=== PATIENT | female | born 1975 | race African-American/Black ===

== ENCOUNTER 2018-02-13 09:56 | Observation (INO) ==
[2018-02-13 10:44] LABS: Baso # (Auto) 0.1 th/mm3 (0.0-0.2); Baso % (Auto) 1.2 % (0.0-2.0); Eos # (Auto) 0.1 th/mm3 (0.0-0.4); Eos % (Auto) 2.7 % (0.0-4.0); Lymph # (Auto) 1.3 th/mm3 (1.0-4.8); Lymph % (Auto) 27.8 % (9.0-44.0); Mean Corpuscular Hemoglobin 17.7 pg (27.0-34.0); Mean Corpuscular Volume 59.4 fL (80.0-100.0); Mean Platelet Volume 6.9 fL (7.0-11.0); Mono # (Auto) 0.4 th/mm3 (0.0-0.9); Mono % (Auto) 8.3 % (0.0-8.0); Neut # (Auto) 2.9 th/mm3 (1.8-7.7); Platelet Count 380 th/mm3 (150-450); Red Blood Count 3.41 mil/mm3 (4.00-5.30); Red Cell Distribution Width 21.2 % (11.6-17.2); White Blood Count 4.8 th/mm3 (4.0-11.0)
[2018-02-13 10:47] LABS: Mean Corpuscular HGB Conc 29.8 % (32.0-36.0)
--- NOTE | 2018-02-13 10:49 | XR ---
EXAM DATE: 02/13/2018 10:23 AM EDT AGE/SEX: 42 years / Female INDICATIONS: . Chest pain started yesterday, especially when taking a deep breath CLINICAL DATA: This is the patient's initial encounter. Patient reports that signs and symptoms have been present for 2 days and indicates a pain score of 10/10. MEDICAL/SURGICAL HISTORY: . smoker None. COMPARISON: No prior exams available for comparison. FINDINGS: PA and lateral views of the chest demonstrate the lungs to be symmetrically aerated without evidence of mass, infiltrate or effusion. Cardiac silhouette is in the upper limits of normal. Osseous structu res are intact. CONCLUSION: 1. Cardiac silhouette is in the upper limits of normal. 2. Lungs are clear. Electronically signed by: Osmany Hughes MD 02/13/2018 10:48 AM EDT
[2018-02-13 10:50] LABS: Hematocrit 20.2 % (35.0-46.0)
[2018-02-13 11:07] LABS: Anion Gap 7 meq/L (5-15); Aspartate Aminotransferase 16 U/L (15-37); Blood Urea Nitrogen 9 mg/dL (7-18); Calcium 8.3 mg/dL (8.5-10.1); Carbon Dioxide 24.9 meq/L (21.0-32.0); Chloride 108 meq/L (98-107); Glomerular Filtration Rate Greater Than 89 mL/min (>89); Glucose,Random 92 mg/dL (74-106); Potassium 3.8 meq/L (3.5-5.1); Sodium 140 meq/L (136-145)
[2018-02-13 11:14] LABS: Alanine Aminotransferase 17 U/L (10-53); Alkaline Phosphatase 38 U/L (45-117); Total Protein 7.2 g/dL (6.4-8.2)
--- NOTE | 2018-02-13 11:45 | CT ---
EXAM DATE: 02/13/2018 11:13 AM EDT AGE/SEX: 42 years / Female INDICATIONS: Mid chest pain that radiates to back CLINICAL DATA: This is the patient's initial encounter. Patient reports that signs and symptoms have been present for 1 day and indicates a pain score of 4/10. MEDICAL/SURGICAL HISTORY: None. None. RADIATION DOSE: 10.60 CTDI (mGy) COMPARISON: [facility], CHEST 2V PA&LAT, 02/13/2018. . TECHNIQUE: Volumetric scanning was performed using a multi-row detector CT scanner during bolus infu miah of 64 ml Omnipaque 350 (iohexol) nonionic water-soluble contrast as a single exam dose. The ailyn a was post processed with a variety of visualization algorithms including full volume maximum intensi ty projection and sliding thin slab reformation. Using automated exposure control and adjustment of t he mA and/or kV according to patient size, radiation dose was kept as low as reasonably achievable to obtain optimal diagnostic quality images. DICOM format image data is available electronically for r eview and comparison. FINDINGS: Pulmonary Arteries: No filling defects are seen in the pulmonary arteries out to the subsegmental ve ssels. The left and right pulmonary arteries are normal in diameter. Lung: No infiltrates seen. Effusion: None. Mediastinum: No evidence of mediastinal or hilar adenopathy. The heart size is mildly prominent. Other: The axilla is unremarkable. CONCLUSION: 1. No evidence of pulmonary embolism 2. No focal or acute pulmonary infiltrates. 3. Mild compensated cardiomegaly. Electronically signed by: Francisco Hernandez MD 02/13/2018 11:44 AM EDT
[2018-02-13] MEDS ORDERED: Acetaminophen 325 MG Tablet PO PRN (12:24)
--- NOTE | 2018-02-13 13:04 | P.HPIM ---
History of Present Illness Primary Care Physician: No Primary Care Physician Chief Complaint: Chest pain History of Present Illness: Mrs. Lara is a 42 y/o female without significant PMH who presented to the ED with complaints of chest pain that began yesterday while she was working. This was located in the middle of her chest and seemed to radiate to her back. She states that the pain is worse with deep breathing. She denies any associated SOB , palpitations, dizziness or weakness. Her labs in the ED noted Hgb 6.0/Hct 20.2 , MCV 59.4. She reports heavy monthly menses which last typically 5-6 days. This has been getting worse progressively since her late 20's. She changes her pad/tampons every 1-2 hours during the day and about every 3 hours at night. 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 She has 5 children. Pt denies any nausea/vomiting, abdominal pain, reflux, melena, or BRBPR. Pt has not established with her [facility] PCP yet. Past Medical Hx: Headaches Hx of head trauma around 13 years old Past Surgical Hx: Surgery related to head trauma as a child in [place] Family Hx: Mother with hx of CAD Social Hx: Denies any alcohol, tobacco or illicit drug use - Diagnosis (1) Symptomatic anemia (2) Atypical chest pain Review of Systems Constitutional: Denies chills, Denies fever(s) Eyes: Denies change in vision, Denies double vision Ears, Nose, Mouth, and Throat: Denies bleeding gums, Denies nosebleed, Denies post nasal drip, Denies sinus pressure Cardiovascular: Reports chest pain, Denies irregular heart rhythm, Denies leg swelling, Denies rapid, pounding, or irregular heartbeat, Denies shortness of breath Respiratory: Denies cough, Denies wheezing Gastrointestinal: Denies abdominal pain, Denies constipation, Denies loose stools, Denies nausea, Denies vomiting Genitourinary: Reports abnormal periods, Reports abnormal vaginal bleeding, Reports heavy periods, Denies pelvic pain, Denies urinary incontinence, Denies urinary urgency, Denies vaginal discharge, Denies vaginal odor Musculoskeletal: Denies back pain, Denies neck pain Skin/Breast: Denies sores, Denies wounds Psychiatric: Denies anxiety, Denies depression [facility] - History History Provided By: Patient - Medical History Medical History: Medical History (Last Reviewed 02/13/18 @ 13:40 by Kennedi Munoz MD) No significant past medical history - Tobacco History Tobacco Use In Past 30 Days: Yes Smoking Status: Current every day smoker Tobacco Type: Cigarettes - Alcohol History How Often Do You Have a Drink Containing Alcohol: 2 to 3 times a week - Substance Use History Substance History: No History of Abuse - Travel History Recent Travel in the [place] Within the Last 8 Weeks: No Recent Travel Out of the Country Within the Last 8 Weeks: No - Immunization History Tetanus Immunization: Unsure Medications and Allergies Allergies Allergy/AdvReac Type Severity Reaction Status Date / Time No Known Allergies Allergy Uncoded 07/09/15 11:29 Home Medications Medication Instructions Recorded Confirmed Type No Known Home Medications 02/13/18 02/13/18 History Active Medications: Active Medications Acetaminophen (Tylenol) 650 mg PO Q4H PRN PRN Reason: Temp > 100.4 Al Hydroxide/Mg Hydroxide (Milk Of Magnesia Liq) 30 ml PO Q12H PRN PRN Reason: Mild Constipation Ondansetron HCl (Zofran Inj) 4 mg IV.PUSH Q6H PRN PRN Reason: NAUSEA OR VOMITING Senna/Docusate Sodium (Sangita-Colace) 1 tab PO BID PARVIZ Sennosides (Senokot) 17.2 mg PO Q12H PRN PRN Reason: Moderate Constipation Sodium Chloride (Ns Flush) 2 ml IV.FLUSH BID PARVIZ Sodium Chloride (Ns Flush) 2 ml IV.FLUSH PRN PRN PRN Reason: FLUSH AFTER USING IV ACCESS Exam Vital signs: Vital Signs 02/13/18 09:59 02/13/18 10:01 02/13/18 10:22 Temperature 98.6 F Pulse Rate 75 68 Respiratory Rate 16 18 Blood Pressure 136/69 135/82 Pulse Oximetry 100 100 100 02/13/18 11:03 02/13/18 11:04 02/13/18 12:01 Temperature Pulse Rate 63 66 Respiratory Rate 16 16 Blood Pressure 133/75 132/78 133/91 H Pulse Oximetry 100 100 Intake & Output 02/12/18 02/13/18 02/13/18 18:59 06:59 18:59 Weight 53.977 kg Narrative: GENERAL: NAD, AAOx3 SKIN: Warm and dry. HEAD: Atraumatic. Normocephalic. EYES: Pupils equal and round. No scleral icterus. No injection or drainage. ENT: No nasal bleeding or discharge. Mucous membranes pink and moist. NECK: Trachea midline. No JVD. CARDIOVASCULAR: Regular rate and rhythm. RESPIRATORY: No accessory muscle use. Clear to auscultation. Breath sounds equal bilaterally. GASTROINTESTINAL: Abdomen soft, non-tender, nondistended. Hepatic and splenic margins not palpable. MUSCULOSKELETAL: Extremities without clubbing, cyanosis, or edema. No obvious deformities. NEUROLOGICAL: Awake and alert. No obvious cranial nerve deficits. Motor grossly within normal limits. Five out of 5 muscle strength in the arms and legs. Normal speech. PSYCHIATRIC: Appropriate mood and affect; insight and judgment normal. Results - Labs CBC & Chem 7: 02/15/18 08:51 02/14/18 04:00 Labs: Short CBC 02/13/18 Range/Units 10:20 WBC 4.8 (4.0-11.0) th/mm3 Hgb 6.0 L* (11.6-15.3) gm/dL Hct 20.2 L* (35.0-46.0) % Plt Count 380 (150-450) th/mm3 BMP 02/13/18 10:20 Sodium 140 Potassium 3.8 Chloride 108 H Carbon Dioxide 24.9 BUN 9 Creatinine 0.76 Calcium 8.3 L Cardiac Enzymes 02/13/18 Range/Units 10:20 Troponin I Less than 0.02 L (0.02-0.05) ng/mL Liver Function 02/13/18 Range/Units 10:20 Total Bilirubin 0.2 (0.2-1.0) mg/dL AST 16 (15-37) U/L ALT 17 (10-53) U/L Alkaline Phosphatase 38 L (45-117) U/L Albumin 3.0 L (3.4-5.0) g/dL - Imaging Impressions Chest X-Ray 02/13/18 10:23 CONCLUSION: 1. Cardiac silhouette is in the upper limits of normal. 2. Lungs are clear. Chest CTA 02/13/18 11:09 CONCLUSION: 1. No evidence of pulmonary embolism 2. No focal or acute pulmonary infiltrates. 3. Mild compensated cardiomegaly. Caprini VTE Risk Assessment Caprini VTE Risk Assessment: No/Low Risk (score <= 1) VTE Pharmacological Exception Reason: High risk for bleeding Caprini Risk Assessment Model: Point Value = 1 Point Value = 2 Point Value = 3 Point Value = 5 Age 41-60 Minor surgery BMI > 25 kg/m2 Swollen legs Varicose veins or History of unexplained or recurrent spontaneous Oral contraceptives or hormone replacement Sepsis (< 1 month) Serious lung disease, including pneumonia (< 1 month) Abnormal pulmonary function Acute myocardial infarction Congestive heart failure (< 1 month) History of inflammatory bowel disease Medical patient at bed rest Age 61-74 Arthroscopic surgery Major open surgery (> 45 min) Laparoscopic surgery (> 45 min) Malignancy Confined to bed (> 72 hours) Immobilizing plaster cast Central venous access Age >= 75 History of VTE Family history of VTE Factor V Leiden Prothrombin [id number] Lupus anticoagulant Anticardiolipin antibodies Elevated serum homocysteine Heparin-induced thrombocytopenia Other congenital or acquired thrombophilia Stroke (< 1 month) Elective arthroplasty Hip, pelvis, or leg fracture Acute spinal cord injury (< 1 month) Prophylaxis Regimen: Total Risk Factor Score Risk Level Prophylaxis Regimen 0-1 Low Early ambulation 2 Moderate Order ONE of the following: *Sequential Compression Device (SCD) *Heparin 5000 units SQ BID 3-4 Higher Order ONE of the following medications: *Heparin 5000 units SQ TID *Enoxaparin/Lovenox 40 mg SQ daily (WT < 150 kg, CrCl > 30 mL/min) *Enoxaparin/Lovenox 30 mg SQ daily (WT < 150 kg, CrCl > 10-29 mL/min) *Enoxaparin/Lovenox 30 mg SQ BID (WT < 150 kg, CrCl > 30 mL/min) AND/OR *Sequential Compression Device (SCD) 5 or more Highest Order ONE of the following medications: *Heparin 5000 units SQ TID (Preferred with Epidurals) *Enoxaparin/Lovenox 40 mg SQ daily (WT < 150 kg, CrCl > 30 mL/min) *Enoxaparin/Lovenox 30 mg SQ daily (WT < 150 kg, CrCl > 10-29 mL/min) *Enoxaparin/Lovenox 30 mg SQ BID (WT < 150 kg, CrCl > 30 mL/min) AND *Sequential Compression Device (SCD) Assessment and Plan - Assessment (1) Symptomatic anemia Code(s): D64.9 - Anemia, unspecified Status: Acute Plan: Symptomatic anemia Menorrhagia Atypical CP - Pt is a 42 y/o [place] female without significant PMH who presented to the ED with complaints of chest pain that began yesterday while she was working. - Her labs in the ED noted Hgb 6.0/Hct 20.2, MCV 59.4. Her CP was likely related to her anemia. - She reports heavy monthly menses which last typically 5-6 days. This has been getting worse progressively since her late 20's. She changes her pad/tampons every 1-2 hours during the day and about every 3 hours at night when menstruating. 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 She has 5 children. - her D-Dimer was slightly elevated in the ED so CTA of the chest was performed and noted no evidence of pulmonary embolism, no focal or acute pulmonary infiltrates, and mild compensated cardiomegaly. - Pt to be transfused with 2 units PRBCs - Check iron profile prior to transfusion - Check pelvic US - Case discussed with Dr. Rivera, the airplane woodworker Hospitalist, and he will see the pt in consultation. - Recheck labs in AM - Supportive care - Further recommendations as the case develops - Pt will need to establish with a [facility] PCP prior to discharge to f/u with at the conclusion of this hospitalization. (2) Atypical chest pain Code(s): R07.89 - Other chest pain Status: Acute - Attending Attestation The exam, history, and the medical decision-making described in the above note were completed with the assistance of the mid-level provider. I reviewed and agree with the findings presented. I attest that I had a [id number] encounter with the patient on the same day, and personally performed and documented my assessment and findings in the medical record. Patient examined. Assessment and plan formulated with Linette Saldana PA-C. I agree with the above.
--- NOTE | 2018-02-13 13:35 | ED ---
HPI General Chief Complaint: Chest Pain Stated Complaint: Chest Pain Complaint Time Seen by Provider: 02/13/18 10:10 Source: patient Mode of arrival: ambulatory Limitations: no limitations History of Present Illness HPI narrative: Patient is a 42-year-old female, past medical history significant for menorrhagia, who presents with complaint of chest that has been intermittent over the last 2 days. It began yesterday while she was moving items around work and then began this morning while doing nothing in particular. Nothing makes it better or worse but it does resolve on its own. She also describes lightheadedness but no shortness of breath. No fever nor chills. No cough nor congestion. No leg swelling or immobilization. MD complaint: Reports chest pain STEMI Alert: No Onset (ago): day(s) Duration: intermittent and improved Onset: during rest Pain location: Reports substernal Severity: moderate Quality: Reports tightness Pain radiation: Reports none Relieving factors: nothing Exacerbating factors: nothing Related Data Home Medications Medication Instructions Recorded Confirmed No Known Home Medications 02/13/18 02/13/18 Allergies Allergy/AdvReac Type Severity Reaction Status Date / Time No Known Allergies Allergy Uncoded 07/09/15 11:29 Review of Systems ROS: all other systems reviewed are negative [facility] Medical History Medical History No significant past medical history (Acute) Social History Social History Substance History: No History of Abuse Smoking Status: Current every day smoker Tobacco Type: Cigarettes How Often Do You Have a Drink Containing Alcohol: 2 to 3 times a week Recent Travel in [facility] within the Last 8 Weeks: No Recent Out of Country Travel within the Last 8 Weeks: No Immunization History Tetanus Immunization: Unsure Exam Narrative Exam Narrative: GENERAL: Well-appearing female in no acute distress SKIN: Focused skin assessment warm/dry. No rashes. HEAD: Atraumatic. Normocephalic. EYES: Pupils equal and round. No scleral icterus. No injection or drainage. ENT: No nasal bleeding or discharge. Mucous membranes pink and moist. NECK: Trachea midline. No JVD. CARDIOVASCULAR: Regular rate and rhythm. No murmur appreciated. Intact and equal peripheral pulses. RESPIRATORY: No accessory muscle use. Clear to auscultation. Breath sounds equal bilaterally. GASTROINTESTINAL: Abdomen soft, non-tender, nondistended. Hepatic and splenic margins not palpable. MUSCULOSKELETAL: No obvious deformities. No clubbing. No cyanosis. No edema. NEUROLOGICAL: Awake and alert. No obvious cranial nerve deficits. Motor grossly within normal limits. Normal speech. PSYCHIATRIC: Appropriate mood and affect; insight and judgment normal. Course Initial Documented Vital Signs Temperature 98.6 F 02/13/18 09:59 Pulse Rate 75 02/13/18 09:59 Respiratory Rate 16 02/13/18 09:59 Blood Pressure 136/69 02/13/18 09:59 Pulse Oximetry 100 02/13/18 09:59 Last Documented Vital Signs Temperature 98.6 F 02/13/18 09:59 Pulse Rate 63 02/13/18 13:01 Respiratory Rate 16 02/13/18 13:01 Blood Pressure 164/66 H 02/13/18 13:01 Pulse Oximetry 100 02/13/18 12:01 Medical Decision Making MDM Narrative Medical decision making narrative: Patient is a 42-year-old female who presents with complaint of intermittent chest pain over the last 2 days. She feels well at this time. EKG showed some T wave inversions and T wave flattening but no other acute ischemic changes. She was given aspirin on arrival. Chest x-ray was unremarkable. D-dimer was elevated thus a CTA was obtained which was also unremarkable. Labs did reveal a hemoglobin of 6 and patient reports that she finished her menstrual cycle couple days ago. She has not had any dark or bloody stools. She has been consented and 2 units packed red blood cells have been ordered. She has been admitted by Dr. Darby, hospitalist on-call, for further evaluation. Medical Screen Exam Complete: Yes Emergency Medical Condition: Yes Differential Diagnosis Differential Diagnosis: Differential diagnosis includes but is not limited to acute coronary syndrome, pulmonary embolism, pneumonia. Medical Records Medical records reviewed: Yes I reviewed the patient's medical records. Lab Data Lab results reviewed: Yes I reviewed the patient's lab results. Result diagrams: 02/13/18 10:20 02/13/18 10:20 Lab Results 02/13/18 02/13/18 02/13/18 Range/Units 10:20 10:20 10:20 WBC 4.8 (4.0-11.0) th/mm3 RBC 3.41 L (4.00-5.30) mil/mm3 Hgb 6.0 L* (11.6-15.3) gm/dL Hct 20.2 L* (35.0-46.0) % MCV 59.4 L (80.0-100.0) fL MCH 17.7 L (27.0-34.0) pg MCHC 29.8 L (32.0-36.0) % RDW 21.2 H (11.6-17.2) % Plt Count 380 (150-450) th/mm3 MPV 6.9 L (7.0-11.0) fL Prelim Diff (Auto) Supervisor Wet Pour Neut % (Auto) 60.0 (16.0-70.0) % Lymph % (Auto) 27.8 (9.0-44.0) % [place] % (Auto) 8.3 H (0.0-8.0) % Eos % (Auto) 2.7 (0.0-4.0) % Baso % (Auto) 1.2 (0.0-2.0) % Neut # (Auto) 2.9 (1.8-7.7) th/mm3 Lymph # (Auto) 1.3 (1.0-4.8) th/mm3 [place] # (Auto) 0.4 (0.0-0.9) th/mm3 Eos # (Auto) 0.1 (0.0-0.4) th/mm3 Baso # (Auto) 0.1 (0.0-0.2) th/mm3 WBC Differential . Differential Comment Auto diff final D-Dimer Quant (PE/DVT) 0.88 H (0.00-0.50) mg/L FEU Sodium 140 (136-145) meq/L Potassium 3.8 (3.5-5.1) meq/L Chloride 108 H (98-107) meq/L Carbon Dioxide 24.9 (21.0-32.0) meq/L Anion Gap 7 (5-15) meq/L BUN 9 (7-18) mg/dL Creatinine 0.76 (0.50-1.00) mg/dL Estimated GFR Greater than 89 (>89) mL/min Random Glucose 92 (74-106) mg/dL Calcium 8.3 L (8.5-10.1) mg/dL Total Bilirubin 0.2 (0.2-1.0) mg/dL AST 16 (15-37) U/L ALT 17 (10-53) U/L Alkaline Phosphatase 38 L (45-117) U/L Troponin I Less than 0.02 L (0.02-0.05) ng/mL Total Protein 7.2 (6.4-8.2) g/dL Albumin 3.0 L (3.4-5.0) g/dL Blood Type Blood Type Recheck Antibody Screen MTS Gel Crossmatch 02/13/18 02/13/18 Range/Units 10:55 12:42 WBC (4.0-11.0) th/mm3 RBC (4.00-5.30) mil/mm3 Hgb (11.6-15.3) gm/dL Hct (35.0-46.0) % MCV (80.0-100.0) fL MCH (27.0-34.0) pg MCHC (32.0-36.0) % RDW (11.6-17.2) % Plt Count (150-450) th/mm3 MPV (7.0-11.0) fL Prelim Diff (Auto) Neut % (Auto) (16.0-70.0) % Lymph % (Auto) (9.0-44.0) % [place] % (Auto) (0.0-8.0) % Eos % (Auto) (0.0-4.0) % Baso % (Auto) (0.0-2.0) % Neut # (Auto) (1.8-7.7) th/mm3 Lymph # (Auto) (1.0-4.8) th/mm3 [place] # (Auto) (0.0-0.9) th/mm3 Eos # (Auto) (0.0-0.4) th/mm3 Baso # (Auto) (0.0-0.2) th/mm3 WBC Differential Differential Comment D-Dimer Quant (PE/DVT) (0.00-0.50) mg/L FEU Sodium (136-145) meq/L Potassium (3.5-5.1) meq/L Chloride (98-107) meq/L Carbon Dioxide (21.0-32.0) meq/L Anion Gap (5-15) meq/L BUN (7-18) mg/dL Creatinine (0.50-1.00) mg/dL Estimated GFR (>89) mL/min Random Glucose (74-106) mg/dL Calcium (8.5-10.1) mg/dL Total Bilirubin (0.2-1.0) mg/dL AST (15-37) U/L ALT (10-53) U/L Alkaline Phosphatase (45-117) U/L Troponin I (0.02-0.05) ng/mL Total Protein (6.4-8.2) g/dL Albumin (3.4-5.0) g/dL Blood Type O Negative Blood Type Recheck Required Antibody Screen Positive H MTS Gel Crossmatch See Detail Imaging Data Attestation: I personally reviewed and interpreted this imaging study as follows : My impression: No acute cardiopulmonary process. Radiologist's impression: Chest X-Ray 02/13/18 10:23 CONCLUSION: 1. Cardiac silhouette is in the upper limits of normal. 2. Lungs are clear. Chest CTA 02/13/18 11:09 CONCLUSION: 1. No evidence of pulmonary embolism 2. No focal or acute pulmonary infiltrates. 3. Mild compensated cardiomegaly. ECG Data EKG Prior to Arrival: No Attestation: I personally reviewed and interpreted this ECG as follows: (Sinus rhythm at a rate of 67 bpm. There are T wave inversions in lead III and aVF with T wave flattening in leads V3 through V6 but no other ST or T wave changes. ) Discharge Plan Discharge Disposition Patient Disposition: 30 Still Patient Discharge Condition Condition: Stable Discharge Details Diagnosis: Symptomatic anemia, Atypical chest pain Physicians Team ED Provider: Kennedi Munoz Primary Care Provider: Primary Care Viridiana Beckwith Attending Provider: Brent Darby Discharge Interventions Interventions: Vital Signs Last Done: 02/13/18 10:01 Status ED Status: Admitted Patient
--- NOTE | 2018-02-13 16:52 | ECG ---
Date Performed: 02/13/2018 Time Performed: 10:10:45 PTAGE: 42 years EKG: Sinus rhythm WITH FIRST DEGREE AV BLOCK MODERATE VOLTAGE CRITERIA FOR LVH, CONSIDER NORMAL VARIANT NONSPECIFIC T- WAVE ABNORMALITY ABNORMAL ECG NO PREVIOUS TRACING DOCTOR: Ema Sanford Interpretating Date/Time 02/13/2018 16:43:44
--- NOTE | 2018-02-13 18:30 | US ---
EXAM DATE: 02/13/2018 12:00 AM EDT AGE/SEX: 42 years / Female INDICATIONS: Menorrhagia. CLINICAL DATA: This is the patient's initial encounter. Patient reports that signs and symptoms have been present for 1 day and indicates a pain score of 4/10. MEDICAL/SURGICAL HISTORY: . No significant medical history. None. COMPARISON: No prior exams available for comparison. MEASUREMENTS: Uterus:__14.9 x 9.3 x 7.2 cm Endometrial Stripe:__6 mm Right Ovary:__ 3.4 x 2.2 x 2.4 cm Left Ovary:__ 2.9 x 2.7 x 1.2 cm FINDINGS: Uterus: Uterus is enlarged with multiple fibroids. There appears to be a small amount of fluid adjac ent to the largest fibroid, possibly within the endometrial canal. This lesion measures approximately 7 cm in diameter. Small nabothian cyst at the cervix Endometrial Stripe: Endometrial fluid is visualized. Right Ovary: Ovary contains no mass. Follicles are present. Left Ovary: Ovary contains no mass or significant cystic lesion. Fluid: Small amount of free fluid in the endometrial canal. No free fluid in the cul-de-sac, however . Other: None. CONCLUSION: 1. Fibroid uterus. Largest fibroid measures approximately 7 cm in. 2. Both ovaries are sonographically normal. 3. Small amount of free fluid within the endometrial canal. No free fluid in the cul-de-sac. Electronically signed by: Simoen Da Silva MD 02/13/2018 6:29 PM EDT
[2018-02-13 20:40] LABS: % Iron Saturation 2.4 % (20-50)
[2018-02-13] MEDS: Senna/Docusate Sodium 8.6/50 MG Tablet PO SCH (21:03)
--- NOTE | 2018-02-13 23:39 | P.CONOB ---
History of Present Illness Consult date: 02/13/18 Requesting Physician: Brent Darby Primary Care Physician: No Primary Care Physician Chief Complaint: Hypermenorrhea resulting anemia History of Present Illness: Mrs. Lara is a 42-year-old white female status post tubal ligation presents with symptomatic anemia secondary to hypermenorrhea very heavy periods that occur once a month and last about 5-6 days with heavy clots and cramps. This type of bleeding pattern is left her hemoglobin 6.0 and now is going to receive 2 units of blood. Patient states she has not seen a employee welfare manager since her last baby was born 15 years ago she has not had a Pap smear any kind of pelvic and during that time. Ultrasound done today shows a a 7 cm leiomyoma submucosal inside the endometrial cavity that is distending the uterus and enlarging it, adding surface area for which she bleeds heavily Para: 5 : 5 Review of Systems Constitutional: Reports headache(s), Reports lack of energy, Reports weakness Cardiovascular: Reports chest pain, Reports shortness of breath Genitourinary: Reports abnormal periods, Reports abnormal vaginal bleeding PMFSH - History History Provided By: Patient - Medical History Medical History: Medical History (Last Reviewed 02/13/18 @ 13:40 by Kennedi Munoz MD) No significant past medical history - Surgical History Surgical History: Surgical History (Last Updated 02/13/18 @ 23:32 by Demar Rivera MD) H/O tubal ligation - Social History I have reviewed the patient's Social History: Yes - Tobacco History Second Hand Smoke Exposure: Yes Tobacco Use In Past 30 Days: Yes Smoking Status: Current every day smoker Tobacco Type: Cigarettes - Alcohol History How Often Do You Have a Drink Containing Alcohol: 2 to 3 times a week - Substance Use History Substance History: No History of Abuse - Travel History History of Recent Travel: No Recent Travel in the [place] Within the Last 8 Weeks: No Recent Travel Out of the Country Within the Last 8 Weeks: No - Immunization History Tetanus Immunization: Unsure Hx Influenza Vaccine This Season: No Medications and Allergies Active Medications: Active Medications Acetaminophen (Tylenol) 650 mg PO Q4H PRN PRN Reason: Temp > 100.4 Al Hydroxide/Mg Hydroxide (Milk Of Magnesia Liq) 30 ml PO Q12H PRN PRN Reason: Mild Constipation Ondansetron HCl (Zofran Inj) 4 mg IV.PUSH Q6H PRN PRN Reason: NAUSEA OR VOMITING Senna/Docusate Sodium (Sangita-Colace) 1 tab PO BID [facility] Last Admin: 02/13/18 21:03 Dose: Not Given Sennosides (Senokot) 17.2 mg PO Q12H PRN PRN Reason: Moderate Constipation Sodium Chloride (Ns Flush) 2 ml IV.FLUSH BID [facility] Last Admin: 02/13/18 21:04 Dose: 2 ml Sodium Chloride (Ns Flush) 2 ml IV.FLUSH PRN PRN PRN Reason: FLUSH AFTER USING IV ACCESS Allergies Allergy/AdvReac Type Severity Reaction Status Date / Time No Known Allergies Allergy Uncoded 07/09/15 11:29 Home Medications Medication Instructions Recorded Confirmed Type No Known Home Medications 02/13/18 02/13/18 History Exam Vital signs: Vital Signs 02/13/18 09:59 02/13/18 10:01 02/13/18 10:22 Temperature 98.6 F Pulse Rate 75 68 Respiratory Rate 16 18 Blood Pressure 136/69 135/82 Pulse Oximetry 100 100 100 02/13/18 11:03 02/13/18 11:04 02/13/18 12:01 Temperature Pulse Rate 63 66 Respiratory Rate 16 16 Blood Pressure 133/75 132/78 133/91 H Pulse Oximetry 100 100 02/13/18 13:01 02/13/18 15:30 02/13/18 18:30 Temperature 98.6 F 98.6 F Pulse Rate 63 63 Respiratory Rate 16 18 18 Blood Pressure 164/66 H 132/64 129/73 Pulse Oximetry 100 02/13/18 18:50 02/13/18 20:00 02/13/18 22:37 Temperature 98.2 F 98.4 F 98.8 F Pulse Rate 67 63 65 Respiratory Rate 18 17 16 Blood Pressure 130/67 124/68 114/59 L Pulse Oximetry 100 98 100 Intake & Output 02/13/18 02/13/18 02/14/18 06:59 18:59 06:59 Intake Total 0 / 0 400 / 400 Balance 0 / 0 400 / 400 Weight 80.7 kg Intake: Intake (Blood Product) Amt 0 / 0 400 / 400 Rbc As-1 Leukored Apheresis #1 0 / 0 Unit [id number] Rbc As-3 Leukoreduced Unit 0 / 0 400 / 400 [id number] Other: Date of Last Bowel Movement 02/13/18 Narrative: GENERAL: Well-nourished, well-developed patient. SKIN: Warm and dry. HEAD: Normocephalic and atraumatic. EYES: No scleral icterus. No injection or drainage. ENT: No nasal drainage noted. Mucous membranes pink. Airway patent. NECK: Supple, trachea midline. No JVD. CARDIOVASCULAR: Regular rate and rhythm without murmurs, gallops, or rubs. RESPIRATORY: Breath sounds equal bilaterally. No accessory muscle use. BREASTS: Bilateral exam showed no masses , no retractions, no nipple discharge. ABDOMEN/GI: Abdomen soft, non-tender, bowel sounds present, no rebound, no guarding GENITOURINARY: External Genitalia: intact and normal in appearance BUS glands: [-] Cervix: [post , normal in its palpation in appearance no cervical motion tenderness Uterus is enlarged approximately 14 weeks size anteflexed and leans to the right somewhat and is minimally tender No adnexal masses palpable-] EXTREMITIES: No cyanosis or edema. BACK: Nontender without obvious deformity. No CVA tenderness. NEUROLOGICAL: Awake and alert. Motor and sensory grossly within normal limits. Five out of 5 muscle strength in all muscle groups. Normal speech. Results - Labs CBC & Chem 7: 02/13/18 10:20 02/13/18 10:20 Labs: Laboratory Results - last 24 hr 02/13/18 02/13/18 02/13/18 10:20 10:20 10:20 WBC 4.8 RBC 3.41 L Hgb 6.0 L* Hct 20.2 L* MCV 59.4 L MCH 17.7 L MCHC 29.8 L RDW 21.2 H Plt Count 380 MPV 6.9 L Prelim Diff (Auto) Deliverer Outside Neut % (Auto) 60.0 Lymph % (Auto) 27.8 Archer % (Auto) 8.3 H Eos % (Auto) 2.7 Baso % (Auto) 1.2 Neut # (Auto) 2.9 Lymph # (Auto) 1.3 Archer # (Auto) 0.4 Eos # (Auto) 0.1 Baso # (Auto) 0.1 WBC Differential . Differential Comment Auto diff final D-Dimer Quant (PE/DVT) 0.88 H Sodium 140 Potassium 3.8 Chloride 108 H Carbon Dioxide 24.9 Anion Gap 7 BUN 9 Creatinine 0.76 Estimated GFR Greater than 89 Random Glucose 92 Calcium 8.3 L Iron TIBC % Saturation Ferritin Total Bilirubin 0.2 AST 16 ALT 17 Alkaline Phosphatase 38 L Troponin I Less than 0.02 L Total Protein 7.2 Albumin 3.0 L Blood Type Blood Type Recheck Antibody Screen Antibody Identification Antigen Identification MTS Gel Crossmatch 02/13/18 02/13/18 02/13/18 10:55 12:42 13:17 WBC RBC Hgb Hct MCV MCH MCHC RDW Plt Count MPV Prelim Diff (Auto) Neut % (Auto) Lymph % (Auto) Archer % (Auto) Eos % (Auto) Baso % (Auto) Neut # (Auto) Lymph # (Auto) Archer # (Auto) Eos # (Auto) Baso # (Auto) WBC Differential Differential Comment D-Dimer Quant (PE/DVT) Sodium Potassium Chloride Carbon Dioxide Anion Gap BUN Creatinine Estimated GFR Random Glucose Calcium Iron TIBC % Saturation Ferritin Total Bilirubin AST ALT Alkaline Phosphatase Troponin I Less than 0.02 L Total Protein Albumin Blood Type O Negative Blood Type Recheck Required Antibody Screen Positive H Antibody Identification Antigen Identification M Antigen - NEGATIVE MTS Gel Crossmatch See Detail 02/13/18 02/13/18 13:17 14:55 WBC RBC Hgb Hct MCV MCH MCHC RDW Plt Count MPV Prelim Diff (Auto) Neut % (Auto) Lymph % (Auto) Archer % (Auto) Eos % (Auto) Baso % (Auto) Neut # (Auto) Lymph # (Auto) Archer # (Auto) Eos # (Auto) Baso # (Auto) WBC Differential Differential Comment D-Dimer Quant (PE/DVT) Sodium Potassium Chloride Carbon Dioxide Anion Gap BUN Creatinine Estimated GFR Random Glucose Calcium Iron 12 L TIBC 504 H % Saturation 2.4 L Ferritin 3 L Total Bilirubin AST ALT Alkaline Phosphatase Troponin I Total Protein Albumin Blood Type Blood Type Recheck Antibody Screen Antibody Identification Anti-M Antigen Identification MTS Gel Crossmatch - Imaging Impressions Pelvis Ultrasound 02/13/18 00:00 CONCLUSION: 1. Fibroid uterus. Largest fibroid measures approximately 7 cm in. 2. Both ovaries are sonographically normal. 3. Small amount of free fluid within the endometrial canal. No free fluid in the cul-de-sac. Chest X-Ray 02/13/18 10:23 CONCLUSION: 1. Cardiac silhouette is in the upper limits of normal. 2. Lungs are clear. Chest CTA 02/13/18 11:09 CONCLUSION: 1. No evidence of pulmonary embolism 2. No focal or acute pulmonary infiltrates. 3. Mild compensated cardiomegaly. Assessment and Plan - Diagnosis (1) Hypermenorrhea Code(s): N92.0 - Excessive and frequent menstruation with regular cycle Status : Acute (2) Uterine fibroid Code(s): D25.9 - Leiomyoma of uterus, unspecified Status: Acute (3) Symptomatic anemia Code(s): D64.9 - Anemia, unspecified Status: Acute - Plan Plan for this patient is having heavy periods each month due to a 7 cm submucosal fibroid that is inside the endometrial cavity, because the patient is a smoker and over 40 cannot use control pills but will attempt use of Depo-Provera every 3 months to try and minimize her monthly periods it has a chance of working but is not is likely to work well since the fibroid is inside the endometrial cavity distending it and adding surface area to bleed from, and is problematic source of bleeding, however you never know, the Depo- Provera may minimize her bleeding. And if well tolerated by the patient and she likes the results that she is getting from it she can continue that long- term every 3 months at varying doses is just from 150 mg to 300 mg shot; if the bleeding does not subside patient would need surgical intervention usually in the form of a hysteroscopic resection of the fibroid or possibly a vaginal hysterectomy, Dr. Rios is ventilation equipment tender for [employer] backup tonight in her office would be the first place the patient might present to for these above-mentioned measures
[2018-02-13] MEDS ORDERED: medroxyPROGESTERone Acetate Inj 150 MG/ML Syringe IM ONE (23:41)
[2018-02-14 06:45] LABS: Hematocrit 27.5 % (35.0-46.0); Hemoglobin 8.4 gm/dL (11.6-15.3); Mean Corpuscular Volume 65.6 fL (80.0-100.0); Red Blood Count 4.19 mil/mm3 (4.00-5.30); White Blood Count 5.2 th/mm3 (4.0-11.0)
[2018-02-14 06:46] LABS: Baso % (Auto) 0.9 % (0.0-2.0); Eos # (Auto) 0.1 th/mm3 (0.0-0.4); Eos % (Auto) 2.4 % (0.0-4.0); Lymph # (Auto) 2.1 th/mm3 (1.0-4.8); Lymph % (Auto) 40.2 % (9.0-44.0); Mean Corpuscular Hemoglobin 20.1 pg (27.0-34.0); Mean Platelet Volume 8.6 fL (7.0-11.0); Mono # (Auto) 0.3 th/mm3 (0.0-0.9); Mono % (Auto) 6.3 % (0.0-8.0); Neut # (Auto) 2.6 th/mm3 (1.8-7.7); Neut % (Auto) 50.2 % (16.0-70.0); Platelet Count 300 th/mm3 (150-450)
[2018-02-14 06:51] LABS: Mean Corpuscular HGB Conc 30.7 % (32.0-36.0)
[2018-02-14 07:13] LABS: Anion Gap 10 meq/L (5-15); Blood Urea Nitrogen 12 mg/dL (7-18); Calcium 8.4 mg/dL (8.5-10.1); Carbon Dioxide 24.3 meq/L (21.0-32.0); Chloride 105 meq/L (98-107); Glomerular Filtration Rate Greater Than 89 mL/min (>89); Glucose,Random 80 mg/dL (74-106); Potassium 3.9 meq/L (3.5-5.1); Sodium 139 meq/L (136-145)
[2018-02-14 07:25] LABS: Dimorphic RBC Present; Platelet Estimate Normal (Normal); Platelet Morphology Normal (Normal)
[2018-02-14] MEDS: Senna/Docusate Sodium 8.6/50 MG Tablet PO SCH ×3 (08:22→23:39)
--- NOTE | 2018-02-14 14:49 | P.PNIM ---
Subjective Interval history: Pt reports some nausea today No further chest pain Pt getting her 4th unit of PRBCs at the time of examination. Physical Exam Vital signs: Vital Signs 02/13/18 15:30 02/13/18 18:30 02/13/18 18:50 Temperature 98.6 F 98.6 F 98.2 F Pulse Rate 63 67 Respiratory Rate 18 18 18 Blood Pressure 132/64 129/73 130/67 Pulse Oximetry 100 100 02/13/18 20:00 02/13/18 22:15 02/13/18 22:37 Temperature 98.4 F 98.2 F 98.8 F Pulse Rate 67 63 65 Respiratory Rate 17 16 16 Blood Pressure 124/68 121/68 114/59 L Pulse Oximetry 98 100 02/13/18 22:57 02/14/18 00:00 02/14/18 01:33 Temperature 98.3 F 98.0 F 98 F Pulse Rate 66 71 66 Respiratory Rate 16 16 16 Blood Pressure 113/59 L 109/62 109/62 Pulse Oximetry 100 100 02/14/18 04:00 02/14/18 08:00 02/14/18 12:00 Temperature 97.8 F 97.9 F 99.5 F Pulse Rate 60 66 73 Respiratory Rate 16 20 20 Blood Pressure 117/67 132/61 129/72 Pulse Oximetry 100 100 100 02/14/18 13:21 02/14/18 13:43 Temperature 99.5 F 98.6 F Pulse Rate 73 64 Respiratory Rate 20 20 Blood Pressure 129/72 120/74 Pulse Oximetry 100 100 Intake & Output 02/13/18 02/14/18 02/14/18 18:59 06:59 18:59 Intake Total 0 / 0 1250 / 1250 0 / 0 Output Total 400 / 400 Balance 0 / 0 850 / 850 0 / 0 Weight 80.7 kg 80.7 kg Intake: Oral 450 / 450 Intake (Blood Product) Amt 0 / 0 800 / 800 0 / 0 Rbc As-1 Leukored Apheresis #1 400 / 400 Unit [id number] Rbc As-3 Leukoreduced Unit 0 / 0 [id number] Rbc As-3 Leukoreduced Unit 0 / 0 400 / 400 [id number] Output: Urine 400 / 400 Other: Date of Last Bowel Movement 02/13/18 02/13/18 Narrative: General: NAD, AAOx3 Chest: CTA Cardiac: Regular Abd: +BS, soft ND/NT Ext: No edema Results - Labs CBC & Chem 7: 02/15/18 08:51 02/14/18 04:00 Laboratory Results - last 24 hr 02/13/18 02/13/18 02/13/18 10:55 12:42 13:17 WBC RBC Hgb Hct MCV MCH MCHC RDW Plt Count MPV Prelim Diff (Auto) Neut % (Auto) Lymph % (Auto) Mayes % (Auto) Eos % (Auto) Baso % (Auto) Neut # (Auto) Lymph # (Auto) Mayes # (Auto) Eos # (Auto) Baso # (Auto) WBC Differential Diff Scan Differential Comment Platelet Estimate Platelet Morphology Dimorphic RBCs Sodium Potassium Chloride Carbon Dioxide Anion Gap BUN Creatinine Estimated GFR Random Glucose Calcium Iron 12 L TIBC 504 H % Saturation 2.4 L Ferritin 3 L Antibody Identification Antigen Identification M Antigen - NEGATIVE MTS Gel Crossmatch See Detail 02/13/18 02/14/18 02/14/18 14:55 04:00 04:00 WBC 5.2 RBC 4.19 Hgb 8.4 L D Hct 27.5 L MCV 65.6 L D MCH 20.1 L MCHC 30.7 L RDW 27.0 H D Plt Count 300 MPV 8.6 Prelim Diff (Auto) Slide review pending Neut % (Auto) 50.2 Lymph % (Auto) 40.2 Mayes % (Auto) 6.3 Eos % (Auto) 2.4 Baso % (Auto) 0.9 Neut # (Auto) 2.6 Lymph # (Auto) 2.1 Mayes # (Auto) 0.3 Eos # (Auto) 0.1 Baso # (Auto) 0.0 WBC Differential . Diff Scan Auto diff confirmed Differential Comment . Platelet Estimate Normal Platelet Morphology Normal Dimorphic RBCs Present H Sodium 139 Potassium 3.9 Chloride 105 Carbon Dioxide 24.3 Anion Gap 10 BUN 12 Creatinine 0.64 Estimated GFR Greater than 89 Random Glucose 80 Calcium 8.4 L Iron TIBC % Saturation Ferritin Antibody Identification Anti-M Antigen Identification MTS Gel Crossmatch 02/14/18 12:08 WBC RBC Hgb Hct MCV MCH MCHC RDW Plt Count MPV Prelim Diff (Auto) Neut % (Auto) Lymph % (Auto) Mayes % (Auto) Eos % (Auto) Baso % (Auto) Neut # (Auto) Lymph # (Auto) Mayes # (Auto) Eos # (Auto) Baso # (Auto) WBC Differential Diff Scan Differential Comment Platelet Estimate Platelet Morphology Dimorphic RBCs Sodium Potassium Chloride Carbon Dioxide Anion Gap BUN Creatinine Estimated GFR Random Glucose Calcium Iron TIBC % Saturation Ferritin Antibody Identification Antigen Identification MTS Gel Crossmatch See Detail - Imaging Impressions Pelvis Ultrasound 02/13/18 00:00 CONCLUSION: 1. Fibroid uterus. Largest fibroid measures approximately 7 cm in. 2. Both ovaries are sonographically normal. 3. Small amount of free fluid within the endometrial canal. No free fluid in the cul-de-sac. Assessment and Plan - Assessment (1) Symptomatic anemia Code(s): D64.9 - Anemia, unspecified Status: Acute Plan: Symptomatic anemia Menorrhagia Atypical CP - Pt is a 42 y/o [facility] female without significant PMH who presented to the ED with complaints of chest pain that began yesterday while she was working. - Her labs in the ED noted Hgb 6.0/Hct 20.2, MCV 59.4. Her CP was likely related to her anemia. - She reports heavy monthly menses which last typically 5-6 days. This has been getting worse progressively since her late 20's. She changes her pad/tampons every 1-2 hours during the day and about every 3 hours at night when menstruating. - She has not seen a patient registration manager in the last 16 years since her youngest child was born. She has 5 children. - her D-Dimer was slightly elevated in the ED so CTA of the chest was performed and noted no evidence of pulmonary embolism, no focal or acute pulmonary infiltrates, and mild compensated cardiomegaly. - Pt was transfused with 2 units PRBCs on 02/13/18. Repeat Hgb 8.4 on 02/14/18. - Pt to be transfused with another 2 units of PRBCs today - Serum iron is 12, TIBC 504, % Sat 2.4, Ferritin 3 - Pelvic US (02/13/18) --> Fibroid uterus. Largest fibroid measures approximately 7 cm in. Both ovaries are sonographically normal. Small amount of free fluid within the endometrial canal. No free fluid in the cul-de-sac. - Appreciate consult from Dr. Rivera, the outside sales account manager Hospitalist, and pt was given a dose of Depo Provera. - She is recommended to followup with Dr. Soni Rios, a local [employer], for continued monitoring to determine if her bleeding may be controlled with the Depo shots or if she will need possible surgical intervention. - Pt will need to followup with her assigned [facility] PCP, Dr. Bonnie Whaley, in 1 week. - Pt can continue iron supplement daily as an outpt as well. - pt to be discharged in AM (2) Atypical chest pain Code(s): R07.89 - Other chest pain Status: Acute - Attending Attestation The exam, history, and the medical decision-making described in the above note were completed with the assistance of the mid-level provider. I reviewed and agree with the findings presented. I attest that I had a [id number] encounter with the patient on the same day, and personally performed and documented my assessment and findings in the medical record. Patient examined. Assessment and plan formulated with Linette Saldana PA-C. I agree with the above.
[2018-02-15] MEDS: Senna/Docusate Sodium 8.6/50 MG Tablet PO SCH (09:31)
[2018-02-15 09:39] LABS: Baso % (Auto) 0.5 % (0.0-2.0); Eos # (Auto) 0.1 th/mm3 (0.0-0.4); Eos % (Auto) 1.2 % (0.0-4.0); Hematocrit 35.1 % (35.0-46.0); Hemoglobin 11.2 gm/dL (11.6-15.3); Lymph # (Auto) 2.8 th/mm3 (1.0-4.8); Lymph % (Auto) 45.8 % (9.0-44.0); Mean Corpuscular HGB Conc 32.1 % (32.0-36.0); Mean Corpuscular Hemoglobin 22.1 pg (27.0-34.0); Mean Corpuscular Volume 68.8 fL (80.0-100.0); Mean Platelet Volume 8.3 fL (7.0-11.0); Mono # (Auto) 0.3 th/mm3 (0.0-0.9); Mono % (Auto) 5.6 % (0.0-8.0); Neut # (Auto) 2.9 th/mm3 (1.8-7.7); Neut % (Auto) 46.9 % (16.0-70.0); Platelet Count 284 th/mm3 (150-450); Red Cell Distribution Width 29.7 % (11.6-17.2); White Blood Count 6.2 th/mm3 (4.0-11.0)
--- NOTE | 2018-02-16 01:45 | ECG ---
Date Performed: 02/13/2018 Time Performed: 19:44:55 PTAGE: 42 years EKG: Sinus rhythm WITH FIRST DEGREE AV BLOCK NONSPECIFIC T-WAVE ABNORMALITY ABNORMAL ECG PREVIOUS TRACING : 02/13/2018 10.10 Since the previous tracing, no significant change noted DOCTOR: Naman Priest Interpretating Date/Time 02/16/2018 01:44:38
== END 2018-02-15 10:09 | disposition home or self-care (01) ==
LOC: NEPE 09:56 → INTOOBSV 12:05 → NEDA 12:05 → N04 14:49
PROVIDERS: ADMIT Hospitalist; ATTEND Hospitalist
DX: N92.0 Excessive and frequent menstruation with regular cycle; R07.89 Other chest pain; Z82.49 Family history of ischemic heart disease and other diseases of the circulatory system; D25.0 Submucous leiomyoma of uterus; Z98.51 Tubal ligation status; F17.210 Nicotine dependence, cigarettes, uncomplicated; D50.0 Iron deficiency anemia secondary to blood loss (chronic)